=== PATIENT | male | born 1990 | race African-American/Black ===

== ENCOUNTER 2018-12-26 00:51 | Emergency (ER) | payer OTHER ==
[~2018-12-26] VITALS: Ht 195.6 cm; Wt 74.8 kg
[~2018-12-26 00:51] MED LIST: ALBUTEROL SULF8.5 GM INH; AZITHROMYCIN250 MG ORAL; CLARITIN-D 241 EACH PO; CYCLOBENZAPRINE10 MG ORAL; IBUPROFEN600 MG ORAL; NKM; PHENERGAN6.25 MG/5 ORAL; PREDNISONE20 MG ORAL; PROMETHAZINE-C118 M1 ORAL; PROMETHAZINE-D118 ML ORAL; ROBITUSSIN DM5 ML ORAL; TESSALON PERLE100 M2 ORAL; ZITHROMAX200 MG/5 M ORAL; [UNRECOGNIZED DRUG - OTHER] PO
[2018-12-26 01:28] VITALS: BP 127/83
[2018-12-26] MEDS ORDERED: HYDROcodone/Acetamin 5/325 tab ORAL ONE (01:45)
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
[2018-12-26] MEDS ORDERED: HYDROCODON-ACE1 EA15 ORAL (02:31)
[2018-12-26] MEDS ORDERED: IBUPROFEN600 MG ORAL (02:31)
[2018-12-26 03:15] VITALS: BP 127/83
--- NOTE | 2018-12-27 17:45 | Diagnostic Imaging Report ---
Indication: Neck Pain Findings: 3 views of the cervical spine were obtained. There is no acute fracture identified. Alignment is normal. The open-mouth odontoid view shows an intact dens and good alignment of the lateral masses with respect to the body of C2. There is no soft tissue swelling. Impression: Negative cervical spine examination.
== END 2018-12-26 03:15 | disposition home or self-care (01) ==
LOC: EMR 01:31
DX: S16.1XXA Strain of muscle, fascia and tendon at neck level, initial encounter (principal); S80.01XA Contusion of right knee, initial encounter; V43.62XA Car passenger injured in collision with other type car in traffic accident, initial encounter; Y92.410 Unspecified street and highway as the place of occurrence of the external cause; Z88.8 Allergy status to other drugs, medicaments and biological substances
CPT/HCPCS: 72040; 99282